=== PATIENT | male | born 1975 | race Caucasian/White ===

== ENCOUNTER 2017-10-07 13:10 | Emergency (ER) | payer SELFPAY ==
[2017-10-07] MEDS ORDERED: Lorazepam 2 MG/ML VIAL ONE (13:44)
[2017-10-07] MEDS ORDERED: Labetalol HCl 100 MG/20 ML VIAL ONE (13:45)
[2017-10-07] MEDS ORDERED: Aspirin 325 MG TAB ONE (13:45)
[2017-10-07] MEDS ORDERED: Nitroglycerin 2% Ointment 1 INCH/1 GM Packet ONE (13:45)
[2017-10-07 13:48] LABS: #Basophils 0.1 thou/uL (0.0-0.2); #Eosinphils 0.2 thou/uL (0.0-0.7); #Lymphocytes 1.7 thou/uL (1.20-3.40); #Monocytes 0.9 thou/uL (0.11-0.59); #Neutrophils 6.8 thou/uL (1.40-6.50); %Basophils 1.2 % (0.0-1.0); %Eosinophils 2.1 % (0.0-10.0); %Lymphocytes 17.4 % (21.0-51.0); %Monocytes 8.9 % (0.0-10.0); %Neutrophils 70.5 % (42.0-75.0); Hemoglobin 14.3 g/dL (14.0-18.0); Mean Corpuscular Hemoglobin 28.8 pg (27.0-31.0); Mean Corpuscular Volume 84.7 fL (78.0-98.0); Mean Platelet Volume 5.8 fL (7.4-10.4); Platelet Count 336 thou/uL (130-400); RBC Distribution Width 11.4 % (11.5-14.5); Red Blood Cell (RBC) Count 4.96 mill/uL (4.70-6.10); White Blood Cell (WBC) Count 9.7 thou/uL (4.8-10.8)
[2017-10-07 13:52] LABS: PTT 26.3 SEC (22.9-36.1); Prothrombin Time 12.8 SEC (12.0-14.7)
[2017-10-07 14:03] LABS: ALT (SGPT) 28 U/L (8-55); AST (SGOT) 26 U/L (5-34); Albumin 4.3 g/dL (3.5-5.0); Alkaline Phosphatase 67 U/L (40-150); Anion Gap 14 mmol/L (10-20); BUN (Urea Nitrogen) 8 mg/dL (8.9-20.6); Bilirubin, Total 1.1 mg/dL (0.2-1.2); Calc. Creatinine Clearance 0 mL/min (70-130); Calcium 9.6 mg/dL (7.8-10.44); Carbon Dioxide 25 mmol/L (22-29); Chloride 104 mmol/L (98-107); Estimated GFR-MDRD 80; Globulin 2.9 g/dL (2.4-3.5); Glucose 108 mg/dL (70-105); Magnesium 2.3 mg/dL (1.6-2.6); Potassium 3.4 mmol/L (3.5-5.1); Protein, Total 7.2 g/dL (6.0-8.3); Sodium 140 mmol/L (136-145)
[2017-10-07 14:11] LABS: CKMB 3.7 ng/mL (0-6.6); Troponin I Less than 0.010 ng/mL (< 0.028)
--- NOTE | 2017-10-07 14:46 | RAD ---
CHEST UPRIGHT PORTABLE 1 VIEW: Date: 10/07/17 HISTORY: 42-year-old male with history of chest pain. COMPARISON: 03/26/08. FINDINGS: Monitor leads overlie the chest. The lungs are clear. No pneumonia, edema, pleural effusion, or other acute process. IMPRESSION: No acute intrathoracic disease. POS: [facility]
--- NOTE | 2017-10-07 14:52 | CT ---
CT HEAD WITHOUT CONTRAST: Date: 10/07/17 Multiple axial tomograms obtained through head without IV enhancement. INDICATION: Mental status change. FINDINGS: Ventricles have normal size and position. Dense basal ganglia calcification is noted. No mass or jim a seen. No evidence of infarct. Sinuses and mastoids are aerated. IMPRESSION: No acute abnormality identified. POS: [facility]
[2017-10-07] MEDS ORDERED: Potassium Chloride 20 MEQ TAB ONE (15:08)
[2017-10-07 15:35] LABS: Bilirubin Negative (Negative); Blood, Urine Trace (Negative); Clarity Clear (Clear); Glucose, Urine (Dipstick) Negative (Negative); Leukocyte Negative (Negative); Nitrite Negative (Negative); Protein, Urine (Dipstick) Negative (Neg-Trace); Urobilinogen 0.2 mg/dL (0.2-1.0)
[2017-10-07 15:44] LABS: Bacteria/HPF Rare-Few HPF (None Seen); Hyaline Casts/LPF NONE SEEN LPF (0-3 Hyaline); RBC/HPF None Seen HPF (0-3); Squamous Epithelial 0-3 HPF (0-3); WBC/HPF 0-3 HPF (0-3)
[2017-10-07 15:45] LABS: Amphetamine Detected (NotDetected); Barbiturates Screen Not Detected (NotDetected); Benzodiazepine Screen Not Detected (NotDetected); Cocaine Metabolite Screen Not Detected (NotDetected); Medtox Control Line Valid? VALID (VALID); Methadone Not Detected (NotDetected); Methamphetamine Not Detected (NotDetected); Opiate Screen Not Detected (NotDetected); Oxycodone Screen Not Detected (NotDetected); Phencyclidine (PCP) Not Detected (NotDetected); THC/Cannabinoid Screen Not Detected (NotDetected); Tricyclic Screen Not Detected (NotDetected)
[2017-10-07] MEDS ORDERED: Morphine 4 MG/ML VIAL ONE (16:36)
== END 2017-10-07 17:12 | disposition short-term general hospital (02) ==
LOC: MADERS 13:10
DX: R07.9 Chest pain, unspecified (principal); F17.210 Nicotine dependence, cigarettes, uncomplicated
CPT/HCPCS: 36416; 70450; 71045; 80053; 80306; 81003; 81015; 82553; 83735; 83880; 84443; 84484; 85025; 85379; 85610; 85730; 93005; 96374; 96375; J2060; J2270

== ENCOUNTER 2019-02-06 18:38 | Emergency (ER) | payer SELFPAY ==
[~2019-02-06 18:38] MED LIST: Sodium Chloride Irrig Solution 250 ML BOT ONE
[2019-02-06] MEDS ORDERED: Lidocaine 1% 20 ML MDV ONE (18:59)
--- NOTE | 2019-02-06 19:44 | RAD ---
LEFT INDEX FINGER THREE VIEWS: 02/06/19 HISTORY: Finger injury. FINDINGS: Joint spaces are preserved. No acute fracture, dislocation or radiopaque foreign bodies are apparent. IMPRESSION: No acute osseous abnormalities are demonstrated. POS: [facility]
[2019-02-06] MEDS ORDERED: Ibuprofen 800 MG TAB ONE (21:18)
== END 2019-02-06 21:40 | disposition home or self-care (01) ==
LOC: MADERS 18:38
DX: S61.311A Laceration without foreign body of left index finger with damage to nail, initial encounter (principal); F17.220 Nicotine dependence, chewing tobacco, uncomplicated; W26.8XXA Contact with other sharp object(s), not elsewhere classified, initial encounter
CPT/HCPCS: 11720; 11760; J2001

== ENCOUNTER 2019-02-23 16:42 | Emergency (ER) | payer SELFPAY ==
[2019-02-23] MEDS ORDERED: Sodium Chloride 0.9% 1,000 ML ONE (17:19)
[2019-02-23] MEDS ORDERED: Piperacillin/Tazobactam 3.375 GM VIAL ONE (17:19)
[2019-02-23] MEDS ORDERED: Sodium Chloride 0.9% 100 ML ONE (17:20)
[2019-02-23] MEDS ORDERED: Sodium Chloride 0.9% 250 ML 250 ML ONE (17:20)
[2019-02-23 17:22] LABS: #Basophils 0.1 thou/uL (0.0-0.2); #Eosinphils 0.2 thou/uL (0.0-0.7); #Lymphocytes 1.5 thou/uL (1.20-3.40); #Monocytes 0.6 thou/uL (0.11-0.59); #Neutrophils 8.2 thou/uL (1.40-6.50); %Eosinophils 1.8 % (0.0-10.0); %Lymphocytes 14.2 % (21.0-51.0); %Monocytes 5.5 % (0.0-10.0); %Neutrophils 77.5 % (42.0-75.0); Hemoglobin 13.7 g/dL (14.0-18.0); Mean Corpuscular HGB CONC 31.5 g/dL (32.0-36.0); Mean Corpuscular Volume 88.8 fL (78.0-98.0); Mean Platelet Volume 6.1 fL (7.4-10.4); Platelet Count 310 thou/uL (130-400); White Blood Cell (WBC) Count 10.6 thou/uL (4.8-10.8)
[2019-02-23] MEDS ORDERED: Ketorolac Tromethamine 30 MG/ML VIAL ONE (17:33)
[2019-02-23 17:38] LABS: Anion Gap 16 mmol/L (10-20); BUN (Urea Nitrogen) 9 mg/dL (8.9-20.6); Calc. Creatinine Clearance 0 mL/min (70-130); Calcium 8.9 mg/dL (7.8-10.44); Carbon Dioxide 23 mmol/L (22-29); Chloride 105 mmol/L (98-107); Estimated GFR-MDRD Greater than 90; Glucose 119 mg/dL (70-105); Potassium 3.9 mmol/L (3.5-5.1); Sodium 140 mmol/L (136-145)
== END 2019-02-23 18:54 | disposition home or self-care (01) ==
LOC: MADERS 16:42
DX: L03.113 Cellulitis of right upper limb (principal); F17.220 Nicotine dependence, chewing tobacco, uncomplicated
CPT/HCPCS: 36415; 80048; 83605; 85025; J1885; J2543; J3370; J3490; J7050

== ENCOUNTER 2019-02-24 02:09 | Emergency (ER) | payer SELFPAY ==
[2019-02-24] MEDS ORDERED: Sulfameth/Trimethoprim DS 800-160mg TAB ONE (03:05)
[2019-02-24] MEDS ORDERED: Cephalexin 500 MG CAP ONE (03:05)
[2019-02-24] MEDS ORDERED: Ketorolac Tromethamine 30 MG/ML VIAL ONE (03:05)
== END 2019-02-24 03:28 | disposition home or self-care (01) ==
LOC: MADERS 02:09
DX: L03.011 Cellulitis of right finger (principal); F17.220 Nicotine dependence, chewing tobacco, uncomplicated
CPT/HCPCS: 96372; 99283; J1885

== ENCOUNTER 2019-07-30 11:39 | Emergency (ER) | payer SELFPAY ==
[2019-07-30] MEDS ORDERED: Lidocaine 2% 20 ml MDV ONE (11:59)
[2019-07-30] MEDS ORDERED: Bacitracin 1 PK ONE (12:29)
== END 2019-07-30 12:45 | disposition home or self-care (01) ==
LOC: MADERS 11:39
DX: S61.213A Laceration without foreign body of left middle finger without damage to nail, initial encounter (principal); F17.220 Nicotine dependence, chewing tobacco, uncomplicated; W26.0XXA Contact with knife, initial encounter
CPT/HCPCS: 12002; J2001

== ENCOUNTER 2024-01-13 13:12 | Emergency (ER) | payer OTHER, SELFPAY ==
[2024-01-13] MEDS ORDERED: methylPREDNISolone Sod Succ/PF 125 MG/2 ML VIAL ONE (14:03)
[2024-01-13] MEDS ORDERED: Ibuprofen 800 MG TAB ONE (14:03)
[2024-01-13] MEDS ORDERED: Cephalexin 500 MG CAP ONE (14:03)
== END 2024-01-13 14:36 | disposition home or self-care (01) ==
LOC: MADERS 13:12
DX: L25.9 Unspecified contact dermatitis, unspecified cause (principal); L01.00 Impetigo, unspecified; F17.220 Nicotine dependence, chewing tobacco, uncomplicated
CPT/HCPCS: 96372; 99282; J2919